=== PATIENT | female | born 1965 | race Caucasian/White ===

== ENCOUNTER 2016-09-06 15:14 | Inpatient (IN) | payer MEDICAID ==
[2016-09-06] MEDS ORDERED: BUTALB-APAP-CA1 EACH PO (15:38)
[2016-09-06] MEDS ORDERED: SEROQUEL300 MG PO (15:39)
[2016-09-06] MEDS ORDERED: ZOCOR40 MG PO (15:39)
[2016-09-06] MEDS ORDERED: OMEPRAZOLE40 MG PO (15:39)
[2016-09-06] MEDS ORDERED: AMITRIPTYLINE100 MG PO (15:40)
[2016-09-06] MEDS ORDERED: NORCO 7.5/325 T1 TA1 PO (15:40)
[2016-09-06] MEDS ORDERED: PROZAC20 MG PO (15:40)
[2016-09-07 05:51] LABS: BASOPHILS 0.2 % (0-2); EOSINOPHILS 0.1 % (0-7); IMMATURE GRANULOCYTES 0.3 % (0-5); LYMPHOCYTES 9.5 % (15-50); MCH 27.8 pg (26.0-34.0); MCHC 32.5 g/dL (31.0-37.0); MCV 85.7 fL (80.0-100.0); MONOCYTES 4.7 % (2-11); NEUTROPHILS 85.2 % (40-80); PLATELET COUNT 280 10x3/uL (130-400); RBC 4.67 10x6/uL (4.00-5.40); RDW 16.3 % (11.5-14.5); WBC 10.1 10x3/uL (4.8-10.8)
[2016-09-07 06:25] LABS: ANION GAP 11.9 mmol/L (8-16); CALCIUM 8.8 mg/dL (8.5-10.1); CARBON DIOXIDE 26.5 mmol/L (21.0-32.0); CREATININE - SERUM 0.9 mg/dL (0.6-1.3); POTASSIUM - SERUM 4.4 mmol/L (3.5-5.1)
== END 2016-09-08 18:50 | disposition home or self-care (01) | DRG 390 ==
LOC: D.MS 15:14
PROVIDERS: ADMIT Surgery
DX: K56.7 Ileus, unspecified (principal); F41.9 Anxiety disorder, unspecified; F32.9 Major depressive disorder, single episode, unspecified

== ENCOUNTER 2018-07-20 10:33 | Emergency (ER) | payer MEDICAID ==
[~2018-07-20] VITALS: Ht 175.3 cm; Wt 81.8 kg
[~2018-07-20 10:33] MED LIST: AMITRIPTYLINE100 MG PO; BUTALB-APAP-CA1 EACH PO; NORCO 7.5/325 T1 TA1 PO; OMEPRAZOLE40 MG PO; PROZAC20 MG PO; SEROQUEL300 MG PO; ZOCOR40 MG PO
[2018-07-20 10:36] VITALS: Ht 175.3 cm; Wt 81.8 kg
[2018-07-20 11:20] LABS: BASOPHILS 0.4 % (0-2); EOSINOPHILS 0.8 % (0-7); HEMATOCRIT 40.6 % (36.0-48.0); HEMOGLOBIN 14.4 g/dL (12-16); IMMATURE GRANULOCYTES 0.3 % (0-5); LYMPHOCYTES 22.6 % (15-50); MCHC 35.5 g/dL (31.0-37.0); MCV 90.2 fL (80.0-100.0); MEAN PLATELET VOLUME 9.5 fL (7.4-10.4); MONOCYTES 8.6 % (2-11); NEUTROPHILS 67.3 % (40-80); PLATELET COUNT 235 10x3/uL (130-400); RDW 12.4 % (11.5-14.5); WBC 10.5 10x3/uL (4.8-10.8)
[2018-07-20 11:47] LABS: ALBUMIN 3.5 g/dL (3.4-5.0); ALKALINE PHOSPHATASE 91 U/L (46-116); ALT (SGPT) 22 U/L (10-68); BILIRUBIN - TOTAL 0.33 mg/dL (0.2-1.3); CALC OSMOLALITY 278 mosm/kg (275-300); CARBON DIOXIDE 24.6 mmol/L (21.0-32.0); CHLORIDE - SERUM 104 mmol/L (98-107); CREATININE - SERUM 0.8 mg/dL (0.6-1.3); GLUCOSE 98 mg/dL (74-106); POTASSIUM - SERUM 3.6 mmol/L (3.5-5.1); PROTEIN - SERUM 8.4 g/dL (6.4-8.2); SODIUM 141 mmol/L (136-145); UREA NITROGEN 6 mg/dL (7-18); eGFR NON AFRICAN AMERICAN 80 mL/min (90-120)
[2018-07-20] MEDS ORDERED: MEDROL DOSE PACK4 MG PO (12:37)
[2018-07-20] MEDS ORDERED: VIBRAMYCIN 100100 MG PO (12:37)
[2018-07-20] MEDS ORDERED: PHENERGAN DM SYR5 ML PO (12:37)
[2018-07-20 12:46] VITALS: BP 126/75
== END 2018-07-20 13:05 | disposition home or self-care (01) ==
LOC: D.ER 10:33
PROVIDERS: Emergency Medicine
DX: J06.9 Acute upper respiratory infection, unspecified (principal); J40 Bronchitis, not specified as acute or chronic

== ENCOUNTER 2019-05-11 16:29 | Emergency (ER) | payer MEDICAID ==
[~2019-05-11] VITALS: Ht 175.3 cm; Wt 77.3 kg
[~2019-05-11 16:29] MED LIST changes: +MEDROL DOSE PACK4 MG PO; +PHENERGAN DM SYR5 ML PO; +VIBRAMYCIN 100100 MG PO
[2019-05-11 16:52] VITALS: Ht 175.3 cm; Wt 77.3 kg
[2019-05-11] MEDS ORDERED: MEDROL DOSE PACK4 MG PO (18:47)
[2019-05-11] MEDS ORDERED: VIBRAMYCIN 100100 MG PO (18:47)
[2019-05-11] MEDS ORDERED: MUCINEX DM ER1 EAC1 PO (18:47)
[2019-05-11 19:14] VITALS: BP 115/54
== END 2019-05-11 19:14 | disposition home or self-care (01) ==
LOC: D.ER 16:29
DX: H66.93 Otitis media, unspecified, bilateral (principal); J02.9 Acute pharyngitis, unspecified; E78.5 Hyperlipidemia, unspecified; Z72.0 Tobacco use